=== PATIENT | male | born 1985 | race Caucasian/White ===

== ENCOUNTER 2021-01-28 13:12 | Observation (INO) | payer OTHER ==
[2021-01-28] MEDS ORDERED: IBUPROFEN 400 MG TABLET (FP) PO ONE ×2 (14:32→14:33)
[2021-01-28] MEDS ORDERED: ACETAMINOPHEN 1000 MG/100 ML VIAL (NON FORMULARY) IVPB ONE (15:04)
[2021-01-28] MEDS ORDERED: ACETAMINOPHEN INJECTION 100 ML IVPB ONE (15:09)
[2021-01-28 15:40] LABS: PH,URINE 6.5 (5.0-8.0); URINE APPEARANCE CLEAR; URINE BILIRUBIN NEGATIVE (NEGATIVE); URINE COLOR YELLOW; URINE GLUCOSE (UA) NEGATIVE (NEGATIVE); URINE KETONE NEGATIVE (NEGATIVE); URINE LEUK ESTERASE NEGATIVE (NEGATIVE); URINE NITRITE NEGATIVE (NEGATIVE); URINE PROTEIN NEGATIVE (NEGATIVE); URINE UROBILINOGEN 0.2 mg/dL (0.2-1.0)
[2021-01-28 15:44] LABS: BASO % 0.2 % (0-2.0); EOS % 0.7 % (0-4.5); HEMATOCRIT 41.2 % (35.4-49); LYMPH % 41.5 % (8-40); MCH 28.8 pg (25.7-33.7); MCHC 34.1 g/dl (32.0-35.9); MEAN CELL VOLUME 84.7 fl (80-96); MEAN PLT VOLUME 7.8 fl (7.5-11.1); MONO % 9.9 % (3.8-10.2); NEUT % 47.7 % (42.8-82.8); PLATELET COUNT 226 10^3/uL (134-434); RBC 4.87 M/mm3 (4.00-5.60); RDW 14.7 % (11.9-15.9); WHITE BLOOD COUNT 8.8 K/mm3 (4.0-10.0)
[2021-01-28 15:48] LABS: INR 1.07 (0.83-1.09); PROTHROMBIN TIME (PATIENT) 13.1 SEC (9.7-13.0)
[2021-01-28 15:53] LABS: ALBUMIN 4.5 g/dl (3.4-5.0); BLOOD UREA NITROGEN 13.4 mg/dL (7-18); CALCIUM 10.1 mg/dL (8.5-10.1)
[2021-01-28 15:57] LABS: CREATININE 0.7 mg/dL (0.55-1.3)
[2021-01-28 15:58] LABS: BILIRUBIN,TOTAL 0.4 mg/dL (0.2-1); TOT PROT 8.4 g/dl (6.4-8.2)
[2021-01-28] MEDS ORDERED: ACETAMINOPHEN 500 MG TABLET (FP) PO PRN ×2 (22:23→22:26)
[2021-01-28] MEDS ORDERED: IBUPROFEN 400 MG TABLET (FP) PO PRN (22:23)
[2021-01-28] MEDS: IBUPROFEN 400 MG TABLET (FP) PO PRN (23:55)
[2021-01-29 01:33] VITALS: BMI 27.1
[2021-01-29] MEDS: IBUPROFEN 400 MG TABLET (FP) PO PRN (09:11)
[2021-01-29] MEDS: traMADol HCL 50 MG TABLET PO PRN ×2 (16:34→22:38)
[2021-01-30] MEDS: traMADol HCL 50 MG TABLET PO PRN (09:03)
[2021-01-30 13:05] VITALS: BP 145/91; PULSE 95; TEMP 97.9
== END 2021-01-30 18:32 | disposition home or self-care (01) ==
LOC: JER 13:12 → JERFT 13:12 → JERBED 14:55 → J6S 21:07
PROVIDERS: ADMIT Family Medicine; ATTEND Family Medicine
DX: R52 Pain, unspecified (principal); S92.324D Nondisplaced fracture of second metatarsal bone, right foot, subsequent encounter for fracture with routine healing; S93.11 Dislocation of interphalangeal joint; V86.59XD Driver of other special all-terrain or other off-road motor vehicle injured in nontraffic accident, subsequent encounter; Z99.89 Dependence on other enabling machines and devices; Z91.030 Bee allergy status; W01.0XXA Fall on same level from slipping, tripping and stumbling without subsequent striking against object, initial encounter; Y92.019 Unspecified place in single-family (private) house as the place of occurrence of the external cause
CPT/HCPCS: 36415; 71046-TC-FY; 73630-TC-RT-FY; 73718-TC-RT; 80053; 81003; 85025; 85610; 86850; 86900; 86901; 93005; 93010; 97116-GP; 97162-GP; 99285-25; C9803; G0378; J0131; U0003; U0005